=== PATIENT | female | born 1990 | race Caucasian/White ===

== ENCOUNTER 2017-08-09 21:47 | Inpatient (IN) | payer BC ==
[2017-08-09 22:25] VITALS: BMI 36.3
[2017-08-09] MEDS ORDERED: Acetaminophen 500 MG TAB PO PRN (22:33)
[2017-08-09] MEDS ORDERED: Methylergonovine 0.2 MG/ML VIAL IM PRN (22:33)
[2017-08-09] MEDS ORDERED: Ibuprofen 800 MG TAB PO PRN (22:33)
[2017-08-09] MEDS ORDERED: NS / Oxytocin 40 units/1000ml 1,000 ML IV PRN (22:33)
[2017-08-09] MEDS ORDERED: Zolpidem Tartrate 5 MG TAB PO PRN (22:33)
[2017-08-09] MEDS ORDERED: Lidocaine 1% (PF) 30 ML VIAL SC PRN (22:33)
[2017-08-09] MEDS ORDERED: Promethazine HCl 25 MG/ML VIAL IM PRN (22:33)
[2017-08-09] MEDS ORDERED: Butorphanol Tartrate 1 MG/ML VIAL SLOW IVP PRN (22:33)
[2017-08-09] MEDS ORDERED: Ondansetron HCl/PF 4 MG/2 ML Vial IVP PRN (22:33)
[2017-08-09] MEDS ORDERED: Misoprostol 200 MCG TAB PR PRN (22:33)
[2017-08-09] MEDS ORDERED: Diphenoxylate HCl/Atropine Tablet PO PRN (22:33)
[2017-08-09] MEDS ORDERED: Carboprost 250 MCG/ML AMP IM PRN (22:33)
[2017-08-09] MEDS ORDERED: HYDROcodone/Acetaminophen 5/325 mg Tablet PO PRN (22:33)
[2017-08-09] MEDS ORDERED: NS w/ Oxytocin 10 units 500 ML IV SCH (22:45)
[2017-08-09 22:49] LABS: Amnisure Test RUPTURE DETECTED (No Rupture)
[2017-08-09 22:50] LABS: Amnisure Internal Control QC ACCEPTABLE (ACCEPTABLE)
[2017-08-09] MEDS: Lactated Ringer's 1,000 ML IV SCH (23:10)
[2017-08-09 23:35] LABS: Hemoglobin 12.1 g/dL (12.0-16.0); Mean Corpuscular HGB CONC 34.2 g/dL (32.0-36.0); Mean Corpuscular Hemoglobin 30.1 pg (27.0-31.0); Mean Platelet Volume 6.7 fL (7.4-10.4); Platelet Count 251 thou/uL (130-400); RBC Distribution Width 12.4 % (11.5-14.5); Red Blood Cell (RBC) Count 4.03 mill/uL (4.20-5.40); White Blood Cell (WBC) Count 13.3 thou/uL (4.8-10.8)
[2017-08-10 00:08] LABS: Hep B Surf Ag Non-Reactive S/CO (NonReactive); Syphilis Antibody Nonreactive (Nonreactive); Syphilis Antibody Index 0.02 S/CO (<1.00 Non-Reactive)
[2017-08-10] MEDS: Misoprostol 100 MCG TAB PO SCH ×2 (00:40→10:00)
[2017-08-10] MEDS: Lactated Ringer's 1,000 ML IV SCH ×2 (03:25→08:20)
[2017-08-10] MEDS ORDERED: DISCONTINUE ALL PREVIOUS NARCOTICS FS SCH (04:00)
[2017-08-10] MEDS ORDERED: Bupivacaine 0.75% 13.4 ML, fentaNYL Citrate/PF 400 MCG in Sodium Chloride 0.9% 78.6 ML EPIDURAL SCH (04:00)
[2017-08-10] MEDS ORDERED: Lidocaine 1% (PF) 30 ML VIAL ONE (04:16)
[2017-08-10] MEDS ORDERED: Lidocaine HCl/Epinephrine 5 ML AMPUL IJ ONE (04:16)
[2017-08-10] MEDS ORDERED: Promethazine HCl 25 MG/ML VIAL IM PRN ×2 (04:37→11:52)
[2017-08-10] MEDS ORDERED: Lactated Ringer's 500 ML IV PRN (04:37)
[2017-08-10] MEDS ORDERED: ePHEDrine/0.9% NaCl/PF SYRINGE 50 mg/10 ml SLOW IVP PRN (04:37)
[2017-08-10] MEDS ORDERED: Ondansetron HCl/PF 4 MG/2 ML Vial IVP PRN ×2 (04:37→11:52)
[2017-08-10] MEDS ORDERED: Acetaminophen 325 MG TAB PO PRN ×2 (04:37→11:52)
[2017-08-10] MEDS ORDERED: diphenhydrAMINE 50 MG/ML VIAL IVP PRN (04:37)
[2017-08-10] MEDS ORDERED: Naloxone HCl 0.4 mg/ml Vial IVP PRN ×2 (04:37)
[2017-08-10] MEDS ORDERED: Eucerin (Mineral Oil/Petrolatum,White) 30 gm Jar TOP PRN (04:37)
[2017-08-10] MEDS ORDERED: fentaNYL Citrate/PF 400 MCG, Bupivacaine 0.5% 20 ML in Sodium Chloride 0.9% 72 ML EPIDURAL SCH (04:45)
[2017-08-10] MEDS ORDERED: Communication Order-Pharmacy FS SCH (04:45)
--- NOTE | 2017-08-10 07:20 | PDOC.LDHP ---
Labor and Delivery H&P Chief complaint: loss of fluid HPI: 27yo at 38w5d by LMP here with LOF since 2114, clear. Had run of late decels on intial presentation but resolved with resuscitation. Then received 1 dose cytotec and had additional episodes of late decels through the night that resolved with resuscitation of O2, IVF bolus. Pt did not change SVE but had pain to get epidural. Current gestational age (weeks): 38 Due date: 08/19/17 Dating criteria: last menstrual period Grav: 1 Para: 0 Current complications: none Abnormal US findings: No Past Medical History: h/o partial seizures 5yr ago, untreated since Current medications: pre- vitamins Previous surgical history: none Allergies/Adverse Reactions: Allergies Allergy/AdvReac Type Severity Reaction Status Date / Time No Known Allergies Allergy Unverified 08/09/17 22:41 Social history: none - Physical Exam Vital signs reviewed and normal: yes General: NAD Heart: RRR Lungs: CTAB Abdomen: gravid Extremeties: no edema FHT: category 2, late decelerations (about 50% of the time, some more subtule than others. also variable decels late in presentation) [place] contractions every: q3-4min - Vaginal Exam cm dilated: 3 Effacement: 100% Station: -3 (arom of forebag, clear) - OB Labs Blood type: A RH: positive Antibody Screen: negative HIV: negative RPR: negative HEPSAg: negative 1 hour GCT: positive 3 hour GTT: negative GBS: negative Urine drug screen: not done Rubella: immune - Assessment L&D Assessment: term rupture in membranes - Plan Plan: admit to L&D, informed consent obtained, anesthesia consult for pain management (Pitocin was started this morning after decels improved following epidural. When it was started there was good btbv with accels. Immediately after starting pit had lates with <50% of contractions. Now resolved since rupture forebag. If decels require turning off pitocin then will dispo for PCS due to intolerance of labor. Plan of care discussed with patient and and they agree.)
[2017-08-10] MEDS ORDERED: Bicitra 30 ML UDCUP ONE (07:52)
--- NOTE | 2017-08-10 08:08 | PDOC.LDPN ---
Labor & Delivery Progress Note - Subjective Subjective: comfortable - Objective Vital signs reviewed and normal: yes General: NAD Uterine fundus: non tender Dilation: 3 Effacement: 100% Station: -3 FHT: category 2, late decelerations, absent or minimal variables Resuscitative measures: maternal oxygen, maternal IV fluids, maternal position change - Assessment (1) Non-reassuring cardiotocographic tracing Code(s): O76 - ABNLT IN HEART RATE AND RHYTHM COMP LABOR AND DELIVERY Current Visit: Yes Status: Acute (2) Full-term premature rupture of membranes Code(s): O42.92 - FULL-TERM HARMAN ROM, UNSP TIME BETW RUPTURE AND ONSET LABOR Current Visit: Yes Status: Acute Qualifiers: PROM onset of labor timing: onset of labor more than 24 hours following rupture Qualified Code(s): O42.12 - Full-term premature rupture of membranes, onset of labor more than 24 hours following rupture Plan: resuscitative measures -: Recurrent late decels and intolerance of labor. Pitocin is turned off and decels improved. Dispo for PCS due to intolerance of labor. Risks of surgery including bleeding infection transfusion damage to surrounding structures d/w pt and she understands and wishes to proceed. All questions answered.
[2017-08-10] MEDS ORDERED: Bicitra 30 ML UDCUP PO SCH (08:15)
[2017-08-10] MEDS ORDERED: CEFAZOLIN/Water 2 GM/20 ML SYRINGE SLOW IVP SCH (08:15)
[2017-08-10] MEDS ORDERED: Bupivacaine/Epinephrine 0.5% 10 ML VIAL ONE (08:36)
[2017-08-10] MEDS ORDERED: Fentanyl 100 MCG/2 ML VIAL ONE (08:37)
[2017-08-10] MEDS ORDERED: Oxytocin 10 UNITS/ML VIAL ONE ×2 (08:42→08:51)
[2017-08-10 09:00] LABS: Base Excess (BEa) 0.5 mEq/L (-2.0 to +3.0)
--- NOTE | 2017-08-10 09:21 | PDOC.OPDEL ---
OB Operative/Delivery Note Delivery Dr/Surgeon: Carolann Assist: Romain, PGY 3 Pre-Delivery Diagnosis: non-reassuring tracing Procedure/Post Delivery Dx: primary low transverse CS Weeks gestation: 38 Anesthesia: epidural - Findings A Sex: male - 1 min: 8 - 5 min: 9 - Additional Findings/Plan Placenta delivered: spontaneous findings: low transverse hysterotomy without extension, normal uterus, normal tubes, normal ovaries Estimated blood loss: 800 Compilations/Other Findings: NC x 1, cord pH 7.3 Post delivery plan: routine recovery
[2017-08-10] MEDS ORDERED: Ferrous Sulfate 325 MG TAB PO SCH ×2 (11:52→12:45)
[2017-08-10] MEDS ORDERED: Adacel (T-DAP) 0.5 ML VIAL IM ONE (11:52)
[2017-08-10] MEDS ORDERED: HYDROcodone/Acetaminophen 5/325 mg Tablet PO PRN (11:52)
[2017-08-10] MEDS ORDERED: Bisacodyl 10 MG SUPP PR PRN (11:52)
[2017-08-10] MEDS ORDERED: Lanolin Ointment 7 GM TUBE TOP PRN (11:52)
[2017-08-10] MEDS ORDERED: diphenhydrAMINE 25 MG CAP PO PRN (11:52)
[2017-08-10] MEDS ORDERED: Docusate Calcium (SURFAK) 240 MG CAP PO SCH ×2 (11:52→12:45)
[2017-08-10] MEDS ORDERED: Simethicone Chewable 80 MG TAB PO PRN (11:52)
[2017-08-10] MEDS ORDERED: Prenatal Vitamin 1 TAB PO SCH ×2 (11:52→12:45)
[2017-08-10] MEDS: Ketorolac Tromethamine 30 MG/ML VIAL IVP SCH ×2 (14:17→20:29)
[2017-08-10] MEDS: Ibuprofen 800 MG TAB PO SCH ×2 (14:28→23:43)
[2017-08-10] MEDS: Ferrous Sulfate 325 MG TAB PO SCH (22:50)
[2017-08-10] MEDS: Docusate Calcium (SURFAK) 240 MG CAP PO SCH (22:53)
[2017-08-11] MEDS: Ketorolac Tromethamine 30 MG/ML VIAL IVP SCH ×4 (02:21→22:22)
[2017-08-11] MEDS: HYDROcodone/Acetaminophen 5/325 mg Tablet PO PRN ×5 (02:22→22:41)
[2017-08-11] MEDS: Lactated Ringer's 1,000 ML IV SCH (02:29)
[2017-08-11] MEDS: Ibuprofen 800 MG TAB PO SCH ×3 (06:38→21:15)
[2017-08-11 07:12] LABS: Hemoglobin 10.5 g/dL (12.0-16.0); Mean Corpuscular HGB CONC 33.3 g/dL (32.0-36.0); Mean Corpuscular Hemoglobin 30.1 pg (27.0-31.0); Mean Corpuscular Volume 90.3 fL (78.0-98.0); Mean Platelet Volume 7.1 fL (7.4-10.4); Platelet Count 176 thou/uL (130-400); RBC Distribution Width 12.4 % (11.5-14.5); Red Blood Cell (RBC) Count 3.49 mill/uL (4.20-5.40); White Blood Cell (WBC) Count 14.4 thou/uL (4.8-10.8)
[2017-08-11] MEDS: Ferrous Sulfate 325 MG TAB PO SCH ×2 (07:41→22:21)
[2017-08-11] MEDS: Docusate Calcium (SURFAK) 240 MG CAP PO SCH ×2 (07:45→21:14)
[2017-08-11] MEDS: Prenatal Vitamin 1 TAB PO SCH (07:45)
[2017-08-12] MEDS: HYDROcodone/Acetaminophen 5/325 mg Tablet PO PRN ×4 (04:16→15:40)
[2017-08-12] MEDS: Ibuprofen 800 MG TAB PO SCH ×2 (06:27→13:25)
[2017-08-12 07:40] VITALS: BP 116/73; TEMP 98.5
[2017-08-12] MEDS: Prenatal Vitamin 1 TAB PO SCH (08:06)
[2017-08-12] MEDS: Docusate Calcium (SURFAK) 240 MG CAP PO SCH (08:06)
[2017-08-12] MEDS: Ketorolac Tromethamine 30 MG/ML VIAL IVP SCH (10:12)
[2017-08-12] MEDS: Ferrous Sulfate 325 MG TAB PO SCH (10:12)
--- NOTE | 2017-08-12 13:06 | PDOC.PP ---
Post Progress Note Post Day #: 2 PO intake tolerated: yes Flatus: yes Ambulation: yes Vital Signs (12 hours) Temp Pulse Resp BP 08/12/17 07:10 98.5 F 87 16 116/73 Weight Weight 205 lb - Physical Examination General: NAD Cardiovascular: RRR Respiratory: non-labored breathing Abdominal: no distention, appropriately TTP Fundus firm & at: umb-2 Skin: CS incision dry & intact Neurological: no gross focal deficits Psychiatric: normal affect Result Diagrams: 08/11/17 05:22 Additional Labs: Post Labs Blood Type A POSITIVE 08/09/17 23:02 Hep Bs Antigen Non-Reactive S/CO (NonReactive) 08/09/17 23:02 (1) Non-reassuring cardiotocographic tracing Code(s): O76 - ABNLT IN HEART RATE AND RHYTHM COMP LABOR AND DELIVERY Status: Acute (2) Full-term premature rupture of membranes Code(s): O42.92 - FULL-TERM [place]MAN ROM, UNSP TIME BETW RUPTURE AND ONSET LABOR Status: Acute Qualifiers: PROM onset of labor timing: onset of labor more than 24 hours following rupture Qualified Code(s): O42.12 - Full-term premature rupture of membranes, onset of labor more than 24 hours following rupture - Assessment/Plan POD2 s/p PCS due to NRFHT VSSAF Hgb 10.5 postop, appropriate for surgical blood loss, no sx anemia, cont PNV Met all milestones, pain controlled s/p LC Rh pos RImm DC home FU 2 wk
== END 2017-08-12 15:50 | disposition home or self-care (01) | DRG 766 ==
LOC: L&D/OP 21:47 → L&D 08-10 01:40 → 3SW 08-10 11:47
PROVIDERS: ADMIT Student in an Organized Health Care Education/Training Program; ATTEND Student in an Organized Health Care Education/Training Program
PROC: 10D00Z1 Extraction of Products of Conception, Low, Open Approach (ICD-10-PCS; principal; 2017-08-10)
PROC: 4A1HXCZ Monitoring of Products of Conception, Cardiac Rate, External Approach (ICD-10-PCS; 2017-08-10)
DX: O42.92 Full-term premature rupture of membranes, unspecified as to length of time between rupture and onset of labor (principal); O69.81X0 Labor and delivery complicated by cord around neck, without compression, not applicable or unspecified; O76 Abnormality in fetal heart rate and rhythm complicating labor and delivery; Z3A.38 38 weeks gestation of pregnancy; Z37.0 Single live birth
CPT/HCPCS: 36415; 51702; 82805; 84112; 85027; 86780; 86850; 86900; 86901; 87340; 99285; J1885; J2001; J2270; J2590; J3010; J3490; J7050